=== PATIENT | female | born 1950 | race Caucasian/White ===

== ENCOUNTER 2016-12-23 11:14 | Outpatient (CLI) | payer MEDICARE, BC | END 2016-12-23 11:15 | disposition home or self-care (01) | DX: J44.9 Chronic obstructive pulmonary disease, unspecified (principal); R91.8 Other nonspecific abnormal finding of lung field ==

== ENCOUNTER 2017-05-21 08:08 | Outpatient (CLI) | payer MEDICARE, BC ==
[2017-05-21 14:48] LABS: CHOL/HDL RATIO 3.6 (<4.4); CHOLESTEROL 226 mg/dL; HDL CHOLESTEROL 62 mg/dL; LDL/HDL RATIO 2.4 (<4.4); TRIGLYCERIDES 72 mg/dL; VLDL CHOLESTEROL 14 mg/dL
== END 2017-05-21 08:09 | disposition home or self-care (01) ==
LOC: LAB.F 08:08
PROVIDERS: ATTEND Internal Medicine Cardiovascular Disease
DX: E78.00 Pure hypercholesterolemia, unspecified (principal)
CPT/HCPCS: 36415; 80061; 84450; 84460

== ENCOUNTER 2018-01-31 08:00 | Outpatient (CLI) | payer MEDICARE, BC ==
[2018-01-31 19:00] LABS: CHOL/HDL RATIO 2.5 (<4.4); CHOLESTEROL 196 mg/dL; HDL CHOLESTEROL 78 mg/dL; LDL CHOLESTEROL,CALCULATED 104 mg/dL; LDL/HDL RATIO 1.3 (<4.4); VLDL CHOLESTEROL 14 mg/dL
== END 2018-01-31 08:01 | disposition home or self-care (01) ==
LOC: LAB.S 08:00
PROVIDERS: ATTEND Internal Medicine Cardiovascular Disease
DX: T50.905A Adverse effect of unspecified drugs, medicaments and biological substances, initial encounter (principal); E78.00 Pure hypercholesterolemia, unspecified; I25.10 Atherosclerotic heart disease of native coronary artery without angina pectoris
CPT/HCPCS: 36415; 80061; 83721

== ENCOUNTER 2018-08-10 09:49 | Outpatient (CLI) | payer MEDICARE, BC ==
--- NOTE | 2018-08-10 13:50 | XRAY Report ---
Reason: THUMB PAIN, RIGHT Procedure Date: 08/10/2018 Accession Number: [id number] / [id number] Procedure: XR - Hand 3 View RT CPT Code: FULL RESULT: EXAM: RIGHT HAND RADIOGRAPHY EXAM DATE: 08/10/2018 10:11 AM. CLINICAL HISTORY: Thumb pain, right. COMPARISON: None. TECHNIQUE: 3 views. FINDINGS: Bones: There is a fracture of the proximal aspect along the volar side of the distal first phalanx with intra-articular extension. Joints: No subluxations. Soft Tissues: Normal. No soft tissue swelling. IMPRESSION: Distal thumb fracture as described. [facility]
== END 2018-08-10 09:50 | disposition home or self-care (01) ==
LOC: DI 09:49
PROVIDERS: ATTEND Nurse Practitioner Family
DX: S62.521A Displaced fracture of distal phalanx of right thumb, initial encounter for closed fracture (principal)

== ENCOUNTER 2018-10-09 16:36 | Emergency (ER) | payer MEDICARE, BC ==
[2018-10-09 16:49] VITALS: BP 156/90
[2018-10-09] MEDS: BUFFERED LIDOCAINE 10 ML SYRINGE SUBQ STA (17:30)
[2018-10-09] MEDS ORDERED: TETANUS/DIPHTHERIA/PERTUSSIS 0.5 ML SYRINGE IM ONE (17:35)
--- NOTE | 2018-10-09 17:36 | ED Physician Documentation ---
PD HPI UPPER EXT INJURY - Stated complaint Stated Complaint: RT THUMB LAC - Chief complaint Chief Complaint: Laceration - History obtained from History obtained from: Patient - History of Present Illness Location: Right (This is a left-handed woman with unknown tetanus status who cut the dorsum of her right thumb with a saw at home while cutting branches just prior to arrival.) Review of Systems Constitutional: reports: Reviewed and negative Nose: reports: Reviewed and negative Cardiac: reports: Reviewed and negative PD ED PE NORMAL - Vitals Vital signs reviewed: Yes - General General: Alert and oriented X 3, No acute distress - Extremities Extremities: Other (On the dorsum of the right thumb at the level of the interphalangeal joints kind of over on the radial side there is a 6 mm shallow laceration with normal extension tendon strength and normal neurovascular status at the tip.) - Neuro Neuro: Alert and oriented X 3, Normal speech Results - Vitals Vitals: Vital Signs - 24 hr 10/09/18 16:47 Temperature 36.6 C Heart Rate 99 Respiratory 18 Rate Blood Pressure 156/90 H O2 Saturation 95 Oxygen O2 Source Room air Procedures - Laceration (location) R thumb Length in cm: 0.5 Wound type: Linear Neurovascular status: Sensory intact, Motor intact, Vascular intact Anesthesia: Lidocaine 1%, With bicarb Wound Preparation: Irrigated copiously NS Skin layer closure: Nylon, Interrupted, Size #-0 - enter number (5-0), Sutures - enter # (2) Other: Patient tolerated well, No complications, Neurovascular intact, Tetanus booster given Complexity: Simple Departure - Departure Disposition: 01 Home, Self Care Clinical Impression: Laceration Condition: Good Record reviewed to determine appropriate education?: Yes Instructions: ED Laceration Hand Comments: Come back for any signs of infection which would include: Redness, swelling, drainage, increased pain, or fevers. Follow-up with your physician in 14 days for suture removal. Your blood pressure was elevated today on check into the emergency department. This does not mean that you have hypertension, it is a common phenomenon to come to the emergency department and have elevated blood pressure. I recommend that you see your primary care physician within the week to have it rechecked when you are feeling better.
== END 2018-10-09 18:25 | disposition home or self-care (01) ==
LOC: ED 16:36
DX: S61.011A Laceration without foreign body of right thumb without damage to nail, initial encounter (principal); W27.0XXA Contact with workbench tool, initial encounter; Y93.H2 Activity, gardening and landscaping; Y92.007 Garden or yard of unspecified non-institutional (private) residence as the place of occurrence of the external cause; R03.0 Elevated blood-pressure reading, without diagnosis of hypertension; Z23 Encounter for immunization
CPT/HCPCS: 12001; 90471; 99282; 99283

== ENCOUNTER 2019-05-25 10:57 | Outpatient (CLI) | payer MEDICARE, BC ==
[2019-05-25] MEDS ORDERED: IOVERSOL 320 50 ML VIAL ONE (11:22)
[2019-05-25] MEDS ORDERED: IOVERSOL 320 100 ML VIAL IVP ONE ×2 (11:22→13:17)
[2019-05-25 11:24] LABS: CREATININE 0.6 mg/dL (0.4-1.0)
[2019-05-25] MEDS ORDERED: IOVERSOL 320 50 ML VIAL PO ONE (13:17)
--- NOTE | 2019-05-27 22:00 | CT Report ---
Reason: LESION OF LUNG, ABN WEIGHT LOSS Procedure Date: 05/25/2019 Accession Number: [id number] / [id number] Procedure: CT - Abdomen/Pelvis W CPT Code: FULL RESULT: EXAM: CT ABDOMEN AND PELVIS EXAM DATE: 05/25/2019 12:39 PM. CLINICAL HISTORY: LESION OF LUNG, ABN WEIGHT LOSS. COMPARISONS: CHEST W/ 09/26/2015 8:10 PM CHEST W/ 05/25/2019 12:34 PM. TECHNIQUE: Routine helical CT imaging was performed through the abdomen and pelvis. IV contrast: OPTI 320 100ML. Enteric contrast: Yes. Reconstructions: Coronal and sagittal. In accordance with CT protocol optimization, one or more of the following dose reduction techniques were utilized for this exam: automated exposure control, adjustment of mA and/or KV based on patient size, or use of iterative reconstructive technique. FINDINGS: Lung Bases: There is some patchy nodularity in the inferior right middle lobe and lateral right lower lobe. No pleural effusion. Liver: Liver is normal in size with no liver mass or biliary dilatation. Liver vessels are patent. Gallbladder/Bile Ducts: Unremarkable. Spleen: Normal. Pancreas: Normal. Adrenal Glands: Normal. Kidneys: There is a parenchymal calcification in the superior pole of the right kidney with a localized cortical scar. There is no solid renal mass or significant hydronephrosis. There is a left kidney stone measuring 3 mm in diameter. Peritoneal Cavity/Bowel: There is oral contrast within the stomach and small bowel. The oral contrast has not yet reached the distal small bowel. No transition zone is identified. There is a mild to moderate amount of stool within the colon without colonic dilation. No focal colon wall thickening. No free air. No free fluid or abscess. Pelvic Organs: The urinary bladder appears unremarkable. The uterus is anteverted. Vasculature: There is atherosclerotic vascular calcification without aneurysm. Bones: There are central calcifications within the left femoral diaphysis. There is no lytic or destructive bone lesion. Other: None. IMPRESSION: 1. Mild to moderate constipation. No mechanical bowel obstruction. 2. Central calcifications in the left femoral diaphysis. Question in enchondroma. No cortical destruction or extraosseous mass. 3. Nonobstructing left kidney stone. 4. No solid-appearing mass or lymphadenopathy in the abdomen or pelvis. [facility]
--- NOTE | 2019-05-29 09:16 | CT Report ---
Reason: LESION OF LUNG, ABN WEIGHT LOSS Procedure Date: 05/25/2019 Accession Number: [id number] / [id number] Procedure: CT - CHEST W CPT Code: FULL RESULT: EXAM: CT CHEST EXAM DATE: 05/25/2019 12:39 PM. CLINICAL HISTORY: LESION OF LUNG, ABN WEIGHT LOSS. COMPARISONS: CT of the abdomen and pelvis from 05/25/2019, chest CT from 09/26/2015. TECHNIQUE: Routine helical CT imaging was performed through the chest. IV contrast: 100 cc Optiray 320. Reconstructions: Coronal and sagittal. In accordance with CT protocol optimization, one or more of the following dose reduction techniques were utilized for this exam: automated exposure control, adjustment of mA and/or KV based on patient size, or use of iterative reconstructive technique. FINDINGS: Lungs/Pleura: There is an area of consolidation with bronchiectasis in the inferior segment of the lingula (series 3, image 26), which is not significantly changed from prior examinations. Additional areas of less severe bronchiectasis are demonstrated in both lungs. Findings are compatible with chronic airways infectious/inflammatory process. In addition, there are areas of peribronchiolar/jcoo-us-Ghok nodular opacity in both lungs, greatest in the apical posterior segment of the left upper lobe, lingula, superior segment of the left lower lobe, and posterior basilar segment of the left lower lobe, compatible with active bronchiolitis. Overall, the distribution is similar to the prior examination. Within these areas of peribronchiolar opacity, there are also several nodular opacities, which are new or increased from the prior examination. For example: 1. A 13 x 9 mm nodular opacity in the superior segment of the left lower lobe (series 3, image 19) is new from the prior examination. 2. Series of smaller nodules also in the superior segment of the left lower lobe, measuring up to 8 x 7 mm (series 3, image 134) is also new. 3. A 12 x 10 mm nodule at the junction of the superior and basilar segments of the left lower lobe (series 3, image 185) is new. 4. A 14 x 10 mm groundglass opacity in the anteromedial basilar segment of the left lower lobe (series 3, image 209) is increased from 9 x 6 mm on the prior examination. 5. A 16 x 13 mm area of consolidation in the medial segment of the right middle lobe (series 3, image 254) is increased from 12 x 8 mm previously. Additional smaller nodules are present elsewhere. A small amount of debris is present in the trachea. No pleural effusion. Mediastinum: Heart size is within normal limits. There is no pericardial effusion. No mediastinal or hilar adenopathy. The thoracic aorta is normal in caliber. No filling defects demonstrated in the opacified portions of the pulmonary arteries. Bones: There are mild superior endplate compression deformities at T3, T4, T7, and T11, which have not significantly changed. No suspicious osseous lesion. Visualized Abdomen: There is a 3 mm calcification in the interpolar region of the left kidney (series 2, image 112), which is not significantly changed and may represent a non-obstructing calculus. Remainder of the visualized upper abdomen is unremarkable for the phase of contrast enhancement. Other: None. IMPRESSION: 1. Findings of [id number] infectious or inflammatory bronchiolitis with areas of bronchiectasis and tree-in-bud opacities, greatest in the left lung. Chronic nontuberculous mycobacterial infection could have this appearance. 2. Multiple nodules and areas of nodular opacity are new or increased from the prior examination. These appear to be largely in the distribution of bronchiolitis and could be infectious or inflammatory in nature. However, superimposed neoplasm is difficult to exclude. Recommend follow-up chest CT in 3 months, following appropriate treatment. [facility]
== END 2019-05-25 10:58 | disposition home or self-care (01) ==
LOC: DI 10:57
PROVIDERS: ATTEND Family Medicine
DX: K59.00 Constipation, unspecified (principal); M89.8X8 Other specified disorders of bone, other site; N20.0 Calculus of kidney; J21.9 Acute bronchiolitis, unspecified; J47.9 Bronchiectasis, uncomplicated; R91.8 Other nonspecific abnormal finding of lung field
CPT/HCPCS: 36415; 71260; 74177; 82565; Q9967

== ENCOUNTER 2019-06-09 08:00 | Outpatient (CLI) | payer MEDICARE, BC | END 2019-06-09 23:59 | disposition home or self-care (01) | LOC: LAB.R 08:00 | PROVIDERS: ATTEND Family Medicine | DX: J47.9 Bronchiectasis, uncomplicated (principal) | CPT/HCPCS: 87015; 87116; 87206 ==

== ENCOUNTER 2019-06-09 13:48 | Outpatient (CLI) | payer MEDICARE, BC ==
[2019-06-09] MEDS ORDERED: ALBUTEROL NEB 2.5 MG/3 ML INH ONE (14:59)
[2019-06-09] MEDS ORDERED: SODIUM CHLORIDE INHALATION 3 ML NEB ONE (15:16)
[2019-06-09] MEDS ORDERED: SODIUM CHLORIDE INHALATION 3 ML NEB INH SCH (17:00)
== END 2019-06-09 13:49 | disposition home or self-care (01) ==
LOC: RT 13:48
PROVIDERS: ATTEND Family Medicine
DX: J47.9 Bronchiectasis, uncomplicated (principal); R91.8 Other nonspecific abnormal finding of lung field
CPT/HCPCS: 87015; 87116; 87206; 94640

== ENCOUNTER 2022-03-24 07:03 | Outpatient (CLI) | payer MEDICARE, BC ==
[2022-03-24 14:21] LABS: BASOPHILS # (AUTO) 0.1 10^3/uL (0.0-0.1); EOSINOPHILS # (AUTO) 0.1 10^3/uL (0.0-0.7); EOSINOPHILS % (AUTO) 1.6 %; HCT - HEMATOCRIT 40.6 % (37.0-47.0); HGB - HEMOGLOBIN 13.5 g/dL (12.0-16.0); LYMPHOCYTES # (AUTO) 2.1 10^3/uL (1.5-3.5); LYMPHOCYTES % (AUTO) 40.8 %; MEAN CORPUSCULAR HEMOGLOBIN 30.8 pg (27.0-31.0); MEAN CORPUSCULAR HGB CONC 33.3 g/dL (32.0-36.0); MEAN CORPUSCULAR VOLUME 92.7 fL (81.0-99.0); MEAN PLATELET VOLUME 11.2 fL (7.9-10.8); MONOCYTES # (AUTO) 0.4 10^3/uL (0.0-1.0); MONOCYTES % (AUTO) 8.2 %; NEUTROPHILS # (AUTO) 2.5 10^3/uL (1.5-6.6); NEUTROPHILS % (AUTO) 48.2 %; PLT - PLATELET COUNT 224 10^3/uL (130-450); RED BLOOD COUNT 4.38 10^6/uL (4.20-5.40); RED CELL DISTRIBUTION WIDTH 13.1 % (12.0-15.0); WHITE BLOOD COUNT 5.2 x10^3/uL (4.8-10.8)
[2022-03-24 15:11] LABS: ALBUMIN/GLOBULIN RATIO 1.5 (1.0-2.2); ALKALINE PHOSPHATASE 63 IU/L (42-121); ALT ALANINE AMINOTRANSFERASE 18 IU/L (10-60); AST ASPARTATE AMINOTRANSFERASE 25 IU/L (10-42); BILIRUBIN,TOTAL 0.7 mg/dL (0.2-1.0); BUN - BLOOD UREA NITROGEN 10 mg/dL (6-20); CALCIUM 9.1 mg/dL (8.5-10.3); CARBON DIOXIDE - CO2 29 mmol/L (21-32); CHLORIDE 93 mmol/L (101-111); CHOLESTEROL 243 mg/dL; CREATININE 0.7 mg/dL (0.4-1.0); GFR - MDRD 83 (>89); GLUCOSE 89 mg/dL (70-100); HDL CHOLESTEROL 81 mg/dL; LDL CHOLESTEROL,CALCULATED 151 mg/dL; LDL/HDL RATIO 1.9 (<4.4); POTASSIUM 4.2 mmol/L (3.5-5.0); SODIUM 128 mmol/L (135-145); TOTAL PROTEIN 6.7 g/dL (6.7-8.2); TRIGLYCERIDES 56 mg/dL; VLDL CHOLESTEROL 11 mg/dL
[2022-03-24 15:20] LABS: FERRITIN 40.5 ng/mL (11.0-306.8)
[2022-03-24 20:52] LABS: ESTIMATED AVERAGE GLUCOSE 114 mg/dL (70-100); HEMOGLOBIN A1c% 5.6 % (4.27-6.07)
== END 2022-03-24 07:04 | disposition home or self-care (01) ==
LOC: LAB.S 07:03
PROVIDERS: ATTEND Internal Medicine
DX: Z00.00 Encounter for general adult medical examination without abnormal findings (principal); J47.9 Bronchiectasis, uncomplicated; A31.0 Pulmonary mycobacterial infection; M81.0 Age-related osteoporosis without current pathological fracture
CPT/HCPCS: 36415; 80053; 80061; 82306; 82330; 82728; 83036; 83721; 83970; 85025; 86140

== ENCOUNTER 2023-12-30 07:10 | Outpatient (CLI) | payer MEDICARE, OTHER ==
[2023-12-30 15:13] LABS: BASOPHILS # (AUTO) 0.1 10^3/uL (0.0-0.1); BASOPHILS % (AUTO) 0.8 %; EOSINOPHILS # (AUTO) 0.1 10^3/uL (0.0-0.7); HCT - HEMATOCRIT 40.5 % (37.0-47.0); HGB - HEMOGLOBIN 12.9 g/dL (12.0-16.0); LYMPHOCYTES % (AUTO) 33.7 %; MEAN CORPUSCULAR HEMOGLOBIN 30.2 pg (27.0-31.0); MEAN CORPUSCULAR HGB CONC 31.9 g/dL (32.0-36.0); MEAN CORPUSCULAR VOLUME 94.8 fL (81.0-99.0); MEAN PLATELET VOLUME 10.6 fL (7.9-10.8); MONOCYTES # (AUTO) 0.6 10^3/uL (0.0-1.0); MONOCYTES % (AUTO) 9.3 %; NEUTROPHILS # (AUTO) 3.2 10^3/uL (1.5-6.6); NEUTROPHILS % (AUTO) 53.7 %; PLT - PLATELET COUNT 255 10^3/uL (130-450); RED BLOOD COUNT 4.27 10^6/uL (4.20-5.40); RED CELL DISTRIBUTION WIDTH 14.1 % (12.0-15.0)
[2023-12-30 15:53] LABS: ALBUMIN 4.1 g/dL (3.2-5.5); ALBUMIN/GLOBULIN RATIO 1.4 (1.0-2.2); BILIRUBIN,TOTAL 0.6 mg/dL (0.2-1.0); CALCIUM 9.3 mg/dL (8.5-10.3); CREATININE 0.6 mg/dL (0.6-1.3); POTASSIUM 3.9 mmol/L (3.5-4.5)
[2023-12-30 16:05] LABS: THYROID STIMULATING HORMONE 1.94 uIU/mL (0.34-5.60)
[2023-12-30 20:46] LABS: ESTIMATED AVERAGE GLUCOSE 120 mg/dL (70-100); HEMOGLOBIN A1c% 5.8 % (4.27-6.07)
== END 2023-12-30 07:11 | disposition home or self-care (01) ==
LOC: LAB.S 07:10
PROVIDERS: ATTEND Family Medicine
DX: R53.83 Other fatigue (principal); J47.9 Bronchiectasis, uncomplicated; I21.09 ST elevation (STEMI) myocardial infarction involving other coronary artery of anterior wall
CPT/HCPCS: 36415; 80053; 83036; 84443; 85025